=== PATIENT | female | born 1995 ===

== ENCOUNTER 2024-09-04 15:27 | Outpatient (CLI) | payer OTHER | END 2024-09-04 15:28 | disposition home or self-care (01) | LOC: PRENATAL 15:27 | PROVIDERS: ATTEND Obstetrics & Gynecology Maternal & Fetal Medicine | DX: O44.00 Complete placenta previa NOS or without hemorrhage, unspecified trimester (principal); Z3A.19 19 weeks gestation of pregnancy ==

== ENCOUNTER 2024-12-03 15:05 | Outpatient (CLI) | payer OTHER | END 2024-12-03 15:07 | disposition home or self-care (01) | LOC: PRENATAL 15:05 | PROVIDERS: ATTEND Obstetrics & Gynecology Maternal & Fetal Medicine | DX: O26.849 Uterine size-date discrepancy, unspecified trimester (principal); O36.8130 Decreased fetal movements, third trimester, not applicable or unspecified; Z3A.32 32 weeks gestation of pregnancy ==